=== PATIENT | female | born 1950 | race Two or more races ===

== ENCOUNTER 2017-03-26 15:30 | Emergency (ER) | payer BC, OTHER ==
[2017-03-26] MEDS ORDERED: ONDANSETRON HCL 4 MG/2 ML VIAL ONE ×2 (15:59→17:13)
[2017-03-26] MEDS ORDERED: KETOROLAC TROMETHAMINE 30 MG/ML VIAL ONE (15:59)
[2017-03-26 16:19] LABS: INR 0.8
[2017-03-26 16:22] LABS: ALKALINE PHOSPHATASE 60 U/L (38-126); AST 40 U/L (14-36); BILIRUBIN, TOTAL 0.4 mg/dL (0.2-1.3); BLOOD UREA NITROGEN 11 mg/dL (7-17); CHLORIDE 102 mmol/L (98-107); EST GLOMERULAR FILTRATION RATE > 60 mL/min; GLUCOSE 153 mg/dL (70-100); LIPASE 111 U/L (23-300); POTASSIUM 3.1 mmol/L (3.5-5.1); SODIUM 140 mmol/L (137-145)
[2017-03-26 16:24] LABS: ETHYL ALCOHOL < 10 mg/dL (<10)
[2017-03-26 16:25] LABS: BASOPHILS 0.5 % (0.0-2.0); HEMATOCRIT 38.6 % (36.0-48.0); HEMOGLOBIN 12.9 g/dL (12.0-16.0); LYMPHOCYTES 34.8 % (20.0-40.0); MEAN CORPUS. HGB CONCENTRATION 33.3 g/dL (32.0-36.0); MEAN CORPUSCULAR HEMOGLOBIN 30.4 pg (29.0-35.0); MEAN PLATELET VOLUME 8.2 fL (7.4-10.4); MONOCYTES 8.7 % (2.0-10.0); PLATELET COUNT 216 X 10^3uL (130-440); RED BLOOD COUNT 4.23 X 10^6uL (4.20-6.10); RED CELL DISTRIBUTION WIDTH 12.7 % (11.5-14.5); WHITE BLOOD COUNT 4.9 X 10^3uL (3.9-10.7)
[2017-03-26 16:26] LABS: EOSINOPHILS# 0.1 X 10^3uL (0.0-0.4); LYMPHOCYTES# 1.7 X 10^3uL (0.8-3.8); MONOCYTES# 0.4 X 10^3uL (0.2-1.0); NEUTROPHILS# 2.6 X 10^3uL (2.6-6.7)
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
[2017-03-26] MEDS ORDERED: FENTANYL 100 MCG/2 ML VIAL ONE (17:13)
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
--- NOTE | 2017-03-27 11:02 | RADIOLOGY REPORT ---
A limited single portable view of the chest demonstrates the heart and vessels to be unremarkable. The lung lee are clear. No fluid or pneumothorax is seen. IMPRESSION: Unremarkable limited single portable view of the chest. Please see CT scan report of the same date. MTDD
--- NOTE | 2017-03-27 11:03 | RADIOLOGY REPORT ---
Two views of the thoracic spine demonstrate no fracture or subluxation. The disk spaces and adjacent soft tissues appear unremarkable. IMPRESSION: Unremarkable views of the thoracic spine. MTDD
--- NOTE | 2017-03-27 11:05 | RADIOLOGY REPORT ---
Three views of the lumbar spine demonstrate approximately 25% anterior compression deformity of L1. No encroachment upon the spinal canal is identified. The remainder of the vertebral body heights are maintained. The disk spaces appear unremarkable. IMPRESSION: Approximately 25% anterior compression deformity of L1. Please see CT scan report of the same date. MTDD
== END 2017-03-26 18:52 | disposition home or self-care (01) ==
LOC: ER 15:30
DX: S32.008A Other fracture of unspecified lumbar vertebra, initial encounter for closed fracture (principal); S20.211A Contusion of right front wall of thorax, initial encounter; S80.00XA Contusion of unspecified knee, initial encounter; M54.2 Cervicalgia; R10.11 Right upper quadrant pain; R10.12 Left upper quadrant pain; R11.0 Nausea; M54.6 Pain in thoracic spine; V47.6XXA Car passenger injured in collision with fixed or stationary object in traffic accident, initial encounter; Y92.488 Other paved roadways as the place of occurrence of the external cause; Z79.82 Long term (current) use of aspirin; Z79.899 Other long term (current) drug therapy; Z74.3 Need for continuous supervision
CPT/HCPCS: 71010; 71260; 72072; 72100; 72125; 74177; 80048; 80320; 82247; 83690; 84075; 84450; 85025; 85610; 93005; 96374; 96375; 96376; 99284; J1885; J2405; J3010